=== PATIENT | male | born 1970 | race Caucasian/White ===

== ENCOUNTER 2022-02-24 10:17 | Emergency (ER) | payer SELFPAY ==
[~2022-02-24] VITALS: Ht 167.6 cm; Wt 63.5 kg
[2022-02-24 10:30] VITALS: BP_SYST 141
--- NOTE | 2022-02-24 10:33 | NUR ---
Triaged pt and pt placed in waiting room until bed becomes available. Pt is A&Ox4. Pt c/o right rib cage pain and left tooth pain no trauma. pt is A&Ox4. States he is biploar. pt is having flight of ideas. Pt is homeless. HR elevated at 112, other vitals stable. NKA.
[2022-02-24] MEDS ORDERED: BENZ11.95 PO (13:21)
--- NOTE | 2022-02-24 13:30 | NUR ---
ER at bedside examining patient.
[2022-02-24 13:32] LABS: BASOPHILS # (AUTO) 0.1 K/uL (0.0-0.2); BASOPHILS % (AUTO) 1.2 % (0.0-2.0); EOSINOPHILS # (AUTO) 0.2 K/uL (0.0-0.4); EOSINOPHILS % (AUTO) 3.4 % (0.0-4.0); HEMATOCRIT 44.5 % (36-54); HEMOGLOBIN 14.9 g/dL (14.0-18.0); LYMPHOCYTES # (AUTO) 1.2 K/uL (1.0-5.5); MEAN CORPUSCULAR HEMOGLOBIN 28 pg (27-31); MEAN CORPUSCULAR HGB CONC 33 % (32-36); MEAN CORPUSCULAR VOLUME 83 fL (79.0-98.0); MONOCYTES # (AUTO) 0.6 K/uL (0.0-1.0); NEUTROPHILS # (AUTO) 3.2 K/uL (1.8-7.7); NEUTROPHILS % (AUTO) 61.4 % (40.0-70.0); PLATELET COUNT (AUTO) 320 K/uL (130-430); RED BLOOD CELL COUNT(AUTO) 5.35 MIL/uL (4.2-6.2); RED CELL DISTRIBUTION WIDTH 13.6 % (9.0-15.0); WHITE BLOOD COUNT (AUTO) 5.1 K/uL (4.8-10.8)
[2022-02-24 13:43] LABS: ANION GAP 5 (5-15); CALCIUM 10.1 mg/dL (8.4-11.0); CHLORIDE 103 mmol/L (98-107); CREATININE 1.07 mg/dL (0.55-1.30); GLUCOSE 102 mg/dL (70-99); POTASSIUM 4.7 mmol/L (3.5-5.1); SODIUM SERUM 141 mmol/L (136-145); UREA NITROGEN, BLOOD 29 mg/dL (8-21)
[2022-02-24 13:45] LABS: GFR AFRICAN AMERICAN 94 mL/min (>90)
[2022-02-24 13:57] LABS: ALANINE AMINOTRANSFERASE 10 U/L (12-78); ALBUMIN 4.2 g/dL (3.4-4.8); ASPARTATE AMINOTRANSFERASE 16 U/L (10-37); TOTAL BILIRUBIN 0.6 mg/dL (0.0-1.0)
--- NOTE | 2022-02-24 16:12 | NUR ---
EKG performed at by Akbar thompson. Physician given copy of EKG for review.
[2022-02-24] MEDS ORDERED: IBUP-1969 PO (17:49)
[2022-02-24] MEDS ORDERED: AMOX500C2 PO (17:49)
[2022-02-24] MEDS ORDERED: IBUPROFEN 600 MG TABLET PO ONE (18:00)
[2022-02-24 18:04] VITALS: BP_SYST 128
--- NOTE | 2022-02-24 18:05 | NUR ---
Patient given written and verbal discharge instructions and verbalizes understanding. ER MD discussed with patient the results and treatment provided. Patient in stable condition. ID arm band removed. Rx of Amoxicillin and Motrin given. Patient educated on pain management and to follow up with PMD. Pain Scale 0/10. Opportunity for questions provided and answered. Medication side effect fact sheet provided.
== END 2022-02-24 18:04 | disposition home or self-care (01) ==
LOC: SED 10:17
DX: K02.9 Dental caries, unspecified (principal); R07.9 Chest pain, unspecified; R06.02 Shortness of breath; Z59.00 Homelessness unspecified; Z79.899 Other long term (current) drug therapy
CPT/HCPCS: 36415; 71045; 80053; 84484; 85025; 93005; 99284; 99285